=== PATIENT | male | born 1930 | race Caucasian/White ===

== ENCOUNTER 2017-02-17 11:43 | Observation (INO) | payer MEDICARE ==
[2017-02-17] VITALS (8 sets, daily range): BP systolic 129–183; BP diastolic 67–105; PULSE 67–72; RESP 16–19; TEMP 97.8–98.6; O2SAT 69–98
[~2017-02-17] VITALS: Ht 185.4 cm; Wt 127.2 kg
[~2017-02-17 11:43] MED LIST: BETH25TA3 PO; DOXE50CA3 PO; GABA300C3 PO; OCUVTAB PO; OMEG100010; PROBCAP4 PO; SYMB160A INH; TYLE500T PO; VENTAER INH; WARF-20 PO
[2017-02-17] MEDS ORDERED: [UNRECOGNIZED DRUG - REMARK] (12:06)
[2017-02-17] MEDS ORDERED: FISH500C (12:06)
[2017-02-17] MEDS ORDERED: WARF-20 PO (12:06)
[2017-02-17] MEDS ORDERED: MULT1TAB39 (12:06)
[2017-02-17] MEDS ORDERED: VENTAER INH (12:06)
[2017-02-17] MEDS ORDERED: DOXE50CA3 PO (12:06)
[2017-02-17] MEDS ORDERED: GABA300C5 PO (12:06)
[2017-02-17] MEDS ORDERED: SYMB160A INH (12:06)
[2017-02-17] MEDS ORDERED: OMEG100010 (12:06)
[2017-02-17] MEDS ORDERED: SODIUM CHLORIDE 0.9% FLUSH 10 ML FLUSH IVF PRN (12:30)
[2017-02-17 12:33] LABS: AUTOMATED NEUTROPHIL # 5.7 TH/MM3 (1.8-7.7); BASOPHIL % 0.6 % (0.0-2.0); EOSINOPHIL # 0.3 TH/MM3 (0-0.4); EOSINOPHIL % 3.3 % (0.0-4.0); HEMATOCRIT 36.2 % (39.0-51.0); HEMO FLAGS DIFF FINAL; LYMPH % 11.9 % (9.0-44.0); LYMPHOCYTE # 0.9 TH/MM3 (1.0-4.8); MEAN CELL VOLUME 88.3 FL (80.0-100.0); MEAN CORPUSCULAR HGB CONC 32.8 % (32.0-36.0); MONO % 11.6 % (0.0-8.0); NEUT % 72.6 % (16.0-70.0); PLATELET COUNT 176 TH/MM3 (150-450); RED CELL DISTRIBUTION WIDTH 13.9 % (11.6-17.2); WHITE BLOOD COUNT 7.8 TH/MM3 (4.0-11.0)
[2017-02-17 12:38] LABS: CHLORIDE 106 MEQ/L (98-107); POTASSIUM 4.8 MEQ/L (3.5-5.1); SODIUM (NA) 140 MEQ/L (136-145)
--- NOTE | 2017-02-17 12:40 | PD ---
HPI Chief Complaint: Cardiac Complaint Time Seen by Provider: 12:08 Travel History International Travel<30 days: No Contact w/Intl Traveler<30days: No Traveled to known affect area: No History of Present Illness HPI 86yo M with PMH of PE on coumadin, COPD was sent from [facility] for evaluation of chest pain and new onset afib. Pt was at the clinic for nebulizer treatment as he is waiting for his machine when he was asked if he had any chest pain and he stated that had chest pain this morning. Stated it was left sided, lasts 3-4 minutes and associated with sob. Pt then had EKG done and was found to be in afib which was new. Pt states he has been having intermittent chest pain but did not tell his PMD and has not had a chest pain work up in years. Pt does not have a mat repairer. States he currently has no chest pain or sob. Denies any fever, cough, n/v, abdominal pain, focal weakness or numbness. PFSH Past Medical History Anemia: Yes Arthritis: Yes Asthma: Yes Autoimmune Disease: Yes (RHEUMATOID ARTHRITIS) Blood Disorders: No Anxiety: No Depression: No Heart Rhythm Problems: No Cancer: Yes (PROSTATE) Cardiac Catheterization: No Cardiovascular Problems: Yes High Cholesterol: No Chemotherapy: No Chest Pain: No Congestive Heart Failure: No COPD: Yes Cerebrovascular Accident: No Coronary Artery Disease: Yes Diabetes: No Diminished Hearing: No Deep Vein Thrombosis: Yes (PULMONARY) Endocrine: No Gastrointestinal Disorders: Yes GERD: Yes Genitourinary: Yes (PROSTATE) Hepatitis: No Hiatal Hernia: Yes Herniated Disk: Yes Immune Disorder: No Implanted Vascular Access Dvce: Yes (PEYTON FILTER) Insomnia: Yes Kidney Stones: No Medical other: Yes (BLOOD CLOTS - PEYTON FILTER.) Musculoskeletal: Yes (CHRONIC BACK PAIN- LUMBAR STENOSIS- UNDER PAIN MANAGEMENT ) Neurologic: Yes (NEUROPATHY TO BILAT LOWER EXTREMITIES) Psychiatric: No Reproductive: No Respiratory: Yes Immunizations Current: Yes Migraines: No Radiation Therapy: Yes (WITH PROSTATE CANCER) Renal Failure: Yes (HX. OF) Seizures: No Sickle Cell Disease: No Sleep Apnea: Yes Thyroid Disease: No Ulcer: No Influenza Vaccination: Yes PNEUMOCCOCAL Vaccine (Year): 2010 ?: Not Past Surgical History Abdominal Surgery: Yes (TIFF) Body Medical Devices: PEYTON FILTER Cardiac Surgery: No Cholecystectomy: Yes Coronary Artery Bypass Graft: No Ear Surgery: No Endocrine Surgery: No Eye Surgery: Yes (CATARACTS REMOVED) Genitourinary Surgery: Yes (PROSTATECTOMY) Gynecologic Surgery: No Joint Replacement: Yes (RIGHT KNEE 2010) Neurologic Surgery: Yes (discectomy = 1987) Oral Surgery: No Pacemaker: No Prostatectomy: Yes (1997) Thoracic Surgery: No Tonsillectomy: Yes Other Surgery: Yes Social History Alcohol Use: No Tobacco Use: No Substance Use: No Allergies-Medications (Allergen,Severity, Reaction): Coded Allergies: Lipitor (Verified Allergy, Mild, MUSCLE ACHE, 02/17/17) Simvastatin (Unverified Allergy, Mild, MUSCLE ACHE, 02/17/17) Zetia (Unverified Allergy, Mild, MUSCLE ACHE, 02/17/17) Uncoded Allergies: VYTORIN (Allergy, Unknown, 01/05/14) Reported Meds & Prescriptions Reported Meds & Active Scripts Active Reported Fish Oil ([place]-3 Fatty Acids) 500 Mg Cap [OTC med for ey] Warfarin 4 Mg Tab 4 Mg PO DAILY [place] 3 1000 mg ([place]-3 Fatty Acids) 1 Cap Cap Multiple Vitamin/Minerals (Multiple Vitamins W/ Minerals) 1 Tab Tab Gabapentin 300 Mg Cap 300 Mg PO HS Doxepin (Doxepin HCl) 50 Mg Cap 50 Mg PO HS Symbicort Inh (Budesonide/Formoterol Fumarate) 160-4.5 Mcg/Act Aero 2 Puff INH Q12HR Ventolin Hfa 18 GM Inh (Albuterol Sulfate) 90 Mcg/Act Aer 1 Puff INH Q4H PRN Review of Systems Except as stated in HPI: all other systems reviewed are Neg Physical Exam Narrative GENERAL: 86yo M not in distress. SKIN: Focused skin assessment warm/dry. HEAD: Atraumatic. Normocephalic. EYES: Pupils equal and round. No scleral icterus. No injection or drainage. CARDIOVASCULAR: Regular rate and irregular rhythm. No murmur appreciated. RESPIRATORY: No accessory muscle use. End expiratory wheezing bilaterally. GASTROINTESTINAL: Abdomen soft, non-tender, nondistended. MUSCULOSKELETAL: No obvious deformities. No clubbing. No cyanosis. +Bilateral lower ext edema. NEUROLOGICAL: Awake and alert. No obvious cranial nerve deficits. Motor grossly within normal limits. Normal speech. PSYCHIATRIC: Appropriate mood and affect; insight and judgment normal. Data Data Last Documented VS Vital Signs Date Time Temp Pulse Resp B/P Pulse Ox O2 Delivery O2 Flow Rate FiO2 02/17/17 14:05 68 18 160/67 97 Room Air 02/17/17 11:54 98.6 Orders Electrocardiogram (02/17/17 ) Basic Metabolic Panel (Bmp) (02/17/17 12:21) Ckmb (Isoenzyme) Profile (02/17/17 12:21) Complete Blood Count With Diff (02/17/17 12:21) Magnesium (Mg) (02/17/17 12:21) Prothrombin Time / Inr (Pt) (02/17/17 12:21) Act Partial Throm Time (Ptt) (02/17/17 12:21) Troponin I (02/17/17 12:21) Chest, Single Ap (02/17/17 12:21) Ecg Monitoring (02/17/17 12:21) Bilateral Bp Monitoring (02/17/17 12:21) Iv Access Insert/Monitor (02/17/17 12:21) Oximetry (02/17/17 12:21) Oxygen Administration (02/17/17 12:21) Sodium Chloride 0.9% Flush (Ns Flush) (02/17/17 12:30) B-Type Natriuretic Peptide (02/17/17 12:24) Albuterol-Ipratropium Neb (Duoneb Neb) (02/17/17 14:15) Admit Order (Ed Use Only) (02/17/17 14:18) Labs Laboratory Tests Test 02/17/17 02/17/17 12:27 12:34 White Blood Count 7.8 TH/MM3 Red Blood Count 4.10 MIL/MM3 Hemoglobin 11.9 GM/DL Hematocrit 36.2 % Mean Corpuscular Volume 88.3 FL Mean Corpuscular Hemoglobin 29.0 PG Mean Corpuscular Hemoglobin 32.8 % Concent Red Cell Distribution Width 13.9 % Platelet Count 176 TH/MM3 Mean Platelet Volume 10.2 FL Neutrophils (%) (Auto) 72.6 % Lymphocytes (%) (Auto) 11.9 % Monocytes (%) (Auto) 11.6 % Eosinophils (%) (Auto) 3.3 % Basophils (%) (Auto) 0.6 % Neutrophils # (Auto) 5.7 TH/MM3 Lymphocytes # (Auto) 0.9 TH/MM3 Monocytes # (Auto) 0.9 TH/MM3 Eosinophils # (Auto) 0.3 TH/MM3 Basophils # (Auto) 0.0 TH/MM3 CBC Comment DIFF FINAL Differential Comment Prothrombin Time 29.6 SEC Prothromb Time International 2.6 RATIO Ratio Activated Partial 35.2 SEC Thromboplast Time Sodium Level 140 MEQ/L Potassium Level 4.8 MEQ/L Chloride Level 106 MEQ/L Carbon Dioxide Level 26.4 MEQ/L Anion Gap 8 MEQ/L Blood Urea Nitrogen 36 MG/DL Creatinine 2.00 MG/DL Estimat Glomerular Filtration 32 ML/MIN Rate Random Glucose 101 MG/DL Hemoglobin A1c 5.7 % Calcium Level 9.4 MG/DL Magnesium Level 2.2 MG/DL Total Creatine Kinase 76 U/L Troponin I LESS THAN 0.02 NG/ML Triglycerides Level 144 MG/DL Cholesterol Level 195 MG/DL LDL Cholesterol 115 MG/DL HDL Cholesterol 51.5 MG/DL Cholesterol/HDL Ratio 3.78 RATIO Thyroid Stimulating Hormone 0.923 uIU/ML 3rd Gen B-Type Natriuretic Peptide 267 PG/ML [facility] Medical Decision Making Medical Screen Exam Complete: Yes Emergency Medical Condition: Yes Interpretation(s) EKG: Afib at 71bpm. RBBB. LAD. Differential Diagnosis ACS vs. COPD exacerbation vs. CHF Narrative Course 86yo M with intermittent chest pain and new onset afib. Last episode of chest pain was this morning. Pt has not had cardiac work up in a long time. Has end expiratory wheezing but states he does not currently want any nebulizer treatments. Will take one at about 3pm. Labs reviewed, no leukocytosis. Troponin negative. BNP 267. BUN/creatinine 36/2.0 which is baseline for pt. CXR showed underinflated examination with atelectasis at lung bases. No cardiopulmonary abnormality is identified. Since pt has not had any cardiac work up in years, will admit to chest pain center for serial EKG and cardiac enzyme. Discussed with Dr. Stoddard and accepted to his service. Diagnosis Primary Impression: Chest pain Qualified Code: R07.9 - Chest pain, unspecified type Admitting Information Admitting Physician Requests: Kori Santos DO Feb 17, 2017 12:40
[2017-02-17 12:41] LABS: ANION GAP 8 MEQ/L (5-15); BICARBONATE 26.4 MEQ/L (21.0-32.0); MAGNESIUM 2.2 MG/DL (1.5-2.5)
[2017-02-17 12:42] LABS: BLOOD UREA NITROGEN 36 MG/DL (7-18)
[2017-02-17 12:45] LABS: GLOMERULAR FILTRATION RATE 32 ML/MIN (>89)
[2017-02-17 12:50] LABS: APTT (PATIENT) 35.2 SEC (24.3-30.1); INTERNATIONAL NORMALIZED RATIO 2.6 RATIO; PROTHROMBIN TIME - PATIENT 29.6 SEC (9.8-11.6)
[2017-02-17 12:51] LABS: CREATINE KINASE 76 U/L (39-308)
--- NOTE | 2017-02-17 13:15 | RADRPT ---
EXAM DATE/TIME: 02/17/2017 12:49 [place] COMPARISON: CHEST SINGLE AP, July 05, 2015, 19:24. INDICATIONS : Patient was at a facility earlier today in [facility] and was sent here because of A-fib. Patient als o complains of shortness of breath for three weeks. MEDICAL HISTORY : Chronic obstructive pulmonary disease. Renal failure. SURGICAL HISTORY : Right knee surgery. ENCOUNTER: Initial ACUITY: 3 weeks PAIN SCORE: 0/10 LOCATION: Bilateral chest FINDINGS: Portable AP view of the chest demonstrates a normal-sized cardiac silhouette. Lungs are underinflated with atelectasis at the bases. No pleural effusion, airspace consolidation, or pneumothorax is prese nt. Bones and soft tissues demonstrate no acute finding. CONCLUSION: Underinflated examination with atelectasis at the lung bases. No acute cardiopulmonary abnormality is identified. Todd Larkin MD on February 17, 2017 at 13:12 Board Certified Radiologist. This report was verified electronically.
[2017-02-17] MEDS ORDERED: RESP: ALBUTEROL 2.5 MG/IPRATROPIUM 0.5 MG NEB (SCH) NEB ONE (14:15)
[2017-02-17] MEDS ORDERED: NALOXONE HCL 0.4 MG/ML AMP IV PRN (14:30)
[2017-02-17] MEDS ORDERED: SODIUM CHLORIDE 0.9% FLUSH 10 ML FLUSH IV FLUSH PRN (14:30)
[2017-02-17] MEDS ORDERED: ACETAMINOPHEN 325 MG TAB PO PRN ×2 (14:30)
--- NOTE | 2017-02-17 14:51 | HHI.HP ---
[facility] Physician Ashlee Shanks MD Admission Diagnosis Chest pain Diagnoses: Chief Complaint: Chest pain, shortness of breath Travel History International Travel<30 Days: No Contact w/Intl Traveler <30 Da: No Traveled to Known Affected Are: No History of Present Illness The patient is an 86-year-old male with a past medical history of PE on Coumadin who is presenting to the hospital with chest pain. The patient says that over the past couple of weeks he has been feeling short of breath. He says he gets short of breath with ambulation. He has noticed some wheezing. He went to the clinic today to see if he can get nebulizers ordered. At the clinic he was asked if he had chest pain and he said that he does. He says he gets intermittent chest pain from time to time. He has had chest pain on and off over the past year or so. He says the pain is located in the center of his chest or a little bit to the left of his center. The chest pain lasts for a few minutes at a time. He has no radiation of the pain. He thought it might be indigestion. Sometimes the chest pain is accompanied by shortness of breath. He reports having a stress test along time ago which was normal. He denies any palpitations. He denies any history of atrial fibrillation. 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 Rhizotomy L4/5 discectomy/hemilaminectomy IVC filter Penile prosthesis Radical prostatectomy Bilat rotator cuff surgery Allergies: Coded Allergies: Lipitor (Verified Allergy, Mild, MUSCLE ACHE, 02/17/17) Simvastatin (Unverified Allergy, Mild, MUSCLE ACHE, 02/17/17) Zetia (Unverified Allergy, Mild, MUSCLE ACHE, 02/17/17) Uncoded Allergies: VYTORIN (Allergy, Unknown, 01/05/14) Active Ordered Medications Current Medications Medications (Trade) Dose Ordered Sig/José Route Start Time Stop Time Status Last Admin (Duoneb Neb) 1 ampule ONCE ONCE NEB 02/17/17 14:15 02/17/17 14:16 02/17/17 14:27 (Symbicort 160-4.5 Inh) 2 puff Q12HR INH 02/17/17 21:00 (SINEquan) 50 mg HS PO 02/17/17 21:00 (Neurontin) 300 mg HS PO 02/17/17 21:00 (Coumadin) 4 mg DAILY PO 02/18/17 09:00 UNV (NS Flush) 2 ml UNSCH PRN IV FLUSH 02/17/17 14:30 (NS Flush) 2 ml BID IV FLUSH 02/17/17 21:00 (Tylenol) 650 mg Q4H PRN PO 02/17/17 14:30 (Tylenol) 650 mg Q6H PRN PO 02/17/17 14:30 (Narcan Inj) 0.4 mg UNSCH PRN IV 02/17/17 14:30 (Pauline-Colace) 1 tab BID PO 02/17/17 21:00 Social History The patient does not smoke or drink. Physical Exam Vital Signs Vital Signs Date Time Temp Pulse Resp B/P Pulse Ox O2 Delivery O2 Flow Rate FiO2 02/17/17 14:05 68 18 160/67 97 Room Air 02/17/17 14:05 97 02/17/17 11:54 98.6 72 16 129/79 96 Physical Exam GENERAL: This is a well-nourished, well-developed patient, in no apparent distress. SKIN: Cool and dry. HEAD: Atraumatic. Normocephalic. No temporal or scalp tenderness. EYES: Pupils equal round and reactive. Extraocular motions intact. No scleral icterus. No injection or drainage. ENT: Nose without bleeding, purulent drainage or septal hematoma. Throat without erythema, tonsillar hypertrophy or exudate. Uvula midline. Airway patent. NECK: Trachea midline. No JVD or lymphadenopathy. Supple, nontender, no meningeal signs. CARDIOVASCULAR: Irregularly irregular. RESPIRATORY: Scattered rhonchi. GASTROINTESTINAL: Abdomen soft, non-tender, nondistended. No hepato-splenomegaly , or palpable masses. No guarding. MUSCULOSKELETAL: 1+ bilateral lower extremity edema. NEUROLOGICAL: Awake and alert. Cranial nerves II through XII intact. Motor and sensory grossly within normal limits. Five out of 5 muscle strength in all muscle groups. Normal speech. PSYCH: Mood and affect appropriate. Laboratory Laboratory Tests Test 02/17/17 02/17/17 12:27 12:34 White Blood Count 7.8 Red Blood Count 4.10 Hemoglobin 11.9 Hematocrit 36.2 Mean Corpuscular Volume 88.3 Mean Corpuscular Hemoglobin 29.0 Mean Corpuscular Hemoglobin 32.8 Concent Red Cell Distribution Width 13.9 Platelet Count 176 Mean Platelet Volume 10.2 Neutrophils (%) (Auto) 72.6 Lymphocytes (%) (Auto) 11.9 Monocytes (%) (Auto) 11.6 Eosinophils (%) (Auto) 3.3 Basophils (%) (Auto) 0.6 Neutrophils # (Auto) 5.7 Lymphocytes # (Auto) 0.9 Monocytes # (Auto) 0.9 Eosinophils # (Auto) 0.3 Basophils # (Auto) 0.0 CBC Comment DIFF FINAL Differential Comment Prothrombin Time 29.6 Prothromb Time International 2.6 Ratio Activated Partial 35.2 Thromboplast Time Sodium Level 140 Potassium Level 4.8 Chloride Level 106 Carbon Dioxide Level 26.4 Anion Gap 8 Blood Urea Nitrogen 36 Creatinine 2.00 Estimat Glomerular Filtration 32 Rate Random Glucose 101 Calcium Level 9.4 Magnesium Level 2.2 Total Creatine Kinase 76 Troponin I LESS THAN 0.02 B-Type Natriuretic Peptide 267 Result Diagram: 02/17/17 1227 02/17/17 1227 Imaging Last Impressions Chest X-Ray 02/17/17 1221 Signed Impressions: Service Date/Time: Friday, February 17, 2017 12:49 - CONCLUSION: Underinflated examination with atelectasis at the lung bases. No acute cardiopulmonary abnormality is identified. Todd Larkin MD Assessment and Plan Assessment and Plan Chest pain Chronic, over the past year. Currently not having chest pain. Initial troponin negative. CXR unremarkable. EKG with rate controlled A fib, RBBB. - trend trops and EKGs. - telemetry. - nuclear stress test in the AM. - check lipid profile and hemoglobin A1c. Atrial fibrillation New onset. Rate controlled. - check an echocardiogram and TSH. - he is already anticoagulated on Coumadin. Continue. - rate control as needed. Dyspnea The pt apparently has COPD though he does not believe he has been diagnosed with it. Also with an elevated BNP and lower extremity edema. CXR unremarkable. - oxygen and nebs as needed. - echo pending. - incentive spirometry. - continue Symbicort. Chronic kidney disease Creatinine appears to be at baseline. - avoid nephrotoxic agents. Recurrent PE On Coumadin. INR is therapeutic. - continue Coumadin. HTN The pt says his blood pressure is usually normal. - monitor. - Vasotec as needed. PPx: Coumadin Code Status Full Discussed Condition With Patient, Chris Sal DO Feb 17, 2017 14:51
[2017-02-17] MEDS ORDERED: ENALAPRILAT 1.25 MG/ML VIAL IV PUSH PRN (15:15)
[2017-02-17 18:13] LABS: HDL CHOLESTEROL 51.5 MG/DL (40.0-60.0); LDL CHOLESTEROL 115 MG/DL (0-99)
[2017-02-17] MEDS: SODIUM CHLORIDE 0.9% FLUSH 10 ML FLUSH IV FLUSH SCH (21:00)
[2017-02-17] MEDS ORDERED: DOXEPIN HCL 50 MG CAP PO SCH (21:00)
[2017-02-17] MEDS ORDERED: GABAPENTIN 300 MG CAP PO SCH (21:00)
[2017-02-17] MEDS: RESP: ALBUTEROL 2.5 MG/IPRATROPIUM 0.5 MG NEB (PRN) NEB (21:07)
[2017-02-17] MEDS: DOCUSATE SODIUM 50 MG/SENNA 8.6 MG TAB PO SCH (21:35)
[2017-02-17] MEDS: BUDESONIDE-FORMOTEROL 160/4.5 MCG INHALER INH SCH (21:35)
[2017-02-17 22:26] LABS: HEMOGLOBIN A1a 1.1 %; HEMOGLOBIN A1b 2.2 %; HEMOGLOBIN Ao 83.2 %; HEMOGLOBIN LA1C 2.4 %; HEMOGLOBIN P3 6.3 %
[2017-02-18] VITALS: BP 146/88; PULSE 70; RESP 23; TEMP 96.1; O2SAT 93
[2017-02-18 04:00] VITALS: BP 146/85; PULSE 67; RESP 18; TEMP 97.8; O2SAT 93
[2017-02-18 08:17] VITALS: O2SAT 94
[2017-02-18] MEDS: RESP: ALBUTEROL 2.5 MG/IPRATROPIUM 0.5 MG NEB (PRN) NEB ×2 (08:17→16:22)
[2017-02-18] MEDS: DOCUSATE SODIUM 50 MG/SENNA 8.6 MG TAB PO SCH (08:21)
[2017-02-18] MEDS: SODIUM CHLORIDE 0.9% FLUSH 10 ML FLUSH IV FLUSH SCH (08:21)
[2017-02-18] MEDS: BUDESONIDE-FORMOTEROL 160/4.5 MCG INHALER INH SCH (08:30)
[2017-02-18 08:38] LABS: AUTOMATED NEUTROPHIL # 4.4 TH/MM3 (1.8-7.7); BASOPHIL % 0.6 % (0.0-2.0); EOSINOPHIL # 0.3 TH/MM3 (0-0.4); EOSINOPHIL % 4.9 % (0.0-4.0); HEMO FLAGS DIFF FINAL; LYMPH % 17.7 % (9.0-44.0); LYMPHOCYTE # 1.2 TH/MM3 (1.0-4.8); MEAN CORPUSCULAR HEMOGLOBIN 29.4 PG (27.0-34.0); MEAN CORPUSCULAR HGB CONC 33.5 % (32.0-36.0); MONO % 12.5 % (0.0-8.0); NEUT % 64.3 % (16.0-70.0); PLATELET COUNT 181 TH/MM3 (150-450); RED BLOOD COUNT 3.87 MIL/MM3 (4.50-5.90); RED CELL DISTRIBUTION WIDTH 13.9 % (11.6-17.2); WHITE BLOOD COUNT 6.7 TH/MM3 (4.0-11.0)
[2017-02-18 08:45] LABS: POTASSIUM 4.6 MEQ/L (3.5-5.1)
[2017-02-18 08:46] LABS: INTERNATIONAL NORMALIZED RATIO 2.2 RATIO; PROTHROMBIN TIME - PATIENT 25.5 SEC (9.8-11.6)
[2017-02-18 08:49] LABS: BICARBONATE 25.3 MEQ/L (21.0-32.0)
[2017-02-18] MEDS ORDERED: WARFARIN SOD 4 MG TAB PO SCH (09:00)
--- NOTE | 2017-02-18 09:24 | EKG ---
Date Performed: 02/17/2017 Time Performed: 19:06:14 PTAGE: 86 years EKG: ATRIAL FIBRILLATION MARKED LEFT AXIS DEVIATION RIGHT BUNDLE BRANCH BLOCK ABNORMAL ECG PREVIOUS TRACING : 02/17/2017 16.10 DOCTOR: Jaime Mario Interpretating Date/Time 02/18/2017 09:23:39
[2017-02-18 09:25] VITALS: PULSE 72
[2017-02-18 10:13] VITALS: BP 131/92; PULSE 70; RESP 16; TEMP 97; O2SAT 92
--- NOTE | 2017-02-18 10:43 | EKG ---
Date Performed: 02/17/2017 Time Performed: 16:10:32 PTAGE: 86 years EKG: ATRIAL FIBRILLATION BORDERLINE LEFT AXIS DEVIATION RIGHT BUNDLE BRANCH BLOCK ABNORMAL ECG PREVIOUS TRACING : 02/17/2017 12.06 DOCTOR: Jaime Mario Interpretating Date/Time 02/18/2017 10:42:01
--- NOTE | 2017-02-18 11:40 | EKG ---
Date Performed: 02/17/2017 Time Performed: 12:06:00 PTAGE: 86 years EKG: ATRIAL FIBRILLATION BORDERLINE LEFT AXIS DEVIATION RIGHT BUNDLE BRANCH BLOCK ABNORMAL ECG NO PREVIOUS TRACING DOCTOR: Jaime Mario Interpretating Date/Time 02/18/2017 11:39:34
--- NOTE | 2017-02-18 12:36 | ECHRPT ---
Indication: Paroxysmal atrial fibrillation CONCLUSIONS Normal left ventricular size and wall thickness. The left ventricular systolic function is normal wi th an estimated ejection fraction in the range of 50-55%. Left ventricular diastolic function parameters a re normal. No definite regional wall motion abnormalities. Trace to mild mitral valve regurgitation. Moderate sclerosis of the noncoronary cusp of the aortic valve. There is mild to moderate tricuspid regurgitation. There is estimated moderate pulmonary hypertension present ( 55 mmHg). BP: / HR: Rhythm: Atrial fibrillation MEASUREMENTS (Male / Female) Normal Values Technical Quality:Fair 2D ECHO LV Diastolic Diameter PLAX 4.8 cm 4.2 - 5.9 / 3.9 - 5.3 cm LV Systolic Diameter PLAX 3.9 cm IVS Diastolic Thickness 1.3 cm 0.6 - 1.0 / 0.6 - 0.9 cm LVPW Diastolic Thickness 0.8 cm 0.6 - 1.0 / 0.6 - 0.9 cm LV Relative Wall Thickness 0.4 RV Internal Dim ED PLAX 2.4 cm LA Systolic Diameter LX 3.8 cm 3.0 - 4.0 / 2.7 - 3.8 cm M-MODE Aortic Root Diameter MM 3.4 cm AV Cusp Separation MM 1.9 cm DOPPLER AV Peak Velocity 162.0 cm/s AV Peak Gradient 10.5 mmHg LVOT Peak Velocity 73.5 cm/s LVOT Peak Gradient 2.2 mmHg Mitral E Point Velocity 89.8 cm/s Mitral A Point Velocity 28.1 cm/s Mitral E to A Ratio 3.2 TR Peak Velocity 335.0 cm/s TR Peak Gradient 44.9 mmHg FINDINGS LEFT VENTRICLE Normal left ventricular size and wall thickness. The left ventricular systolic function is normal wi th an estimated ejection fraction in the range of 50-55%. Left ventricular diastolic function parameters a re normal. No definite regional wall motion abnormalities. RIGHT VENTRICLE The right ventriclar size is upper limits of normal. LEFT ATRIUM The left atrial size is normal. RIGHT ATRIUM The right atrial size is normal. ATRIAL SEPTUM Normal atrial septal thickness without atrial level shunting by limited color doppler interrogation. AORTA The aortic root and proximal ascending aorta are normal in size on limited imaging. MITRAL VALVE Trace to mild mitral valve regurgitation. AORTIC VALVE Moderate sclerosis of the noncoronary cusp. TRICUSPID VALVE There is mild to moderate tricuspid regurgitation. There is estimated moderate pulmonary hypertension present ( 55 mmHg). PULMONARY VALVE The pulmonary valve is not well visualized. VESSELS The inferior vena cava is normal in size. PERICARDIUM No pericardial effusion. Richard Carbajal MD (Electronically Signed) Final Date:18 February 2017 12:36
--- NOTE | 2017-02-18 12:38 | HHI.PR ---
Subjective Remarks Patient seen and examined today for follow-up on chest pain, new onset atrial fibrillation. Patient denies any recurrent chest pain. Denies any palpitations , arrhythmia, shortness of breath, dyspnea. Patient's at bedside, discussed with patient and concerning atrial fibrillation, chest discomfort. Answered all of their questions. Objective Vitals Vital Signs Date Time Temp Pulse Resp B/P Pulse Ox O2 Delivery O2 Flow Rate FiO2 02/18/17 10:13 97.0 70 16 131/92 92 02/18/17 09:25 72 02/18/17 08:17 94 21 02/18/17 04:00 97.8 67 18 146/85 93 02/18/17 00:00 96.1 70 23 146/88 93 02/17/17 20:55 97 21 02/17/17 20:00 97.8 69 18 145/82 69 02/17/17 16:07 160/89 02/17/17 15:30 97.9 67 19 183/105 96 02/17/17 15:05 70 16 146/78 98 02/17/17 14:49 98 21 02/17/17 14:05 68 18 160/67 97 Room Air 02/17/17 14:05 97 I/O 02/17/17 02/17/17 02/17/17 02/18/17 02/18/17 02/18/17 07:00 15:00 23:00 07:00 15:00 23:00 Intake Total 0 ml 0 ml 100 ml Output Total 550 ml Balance -550 ml 0 ml 100 ml Intake Oral 0 ml 0 ml 100 ml Output Urine Total 550 ml # Voids 3 # Bowel Movements 0 0 Result Diagram: 02/18/17 0738 02/18/17 0738 Objective Remarks GENERAL: Well-developed, well-nourished, in no acute distress. alert and orientated HEENT: Head is normocephalic without any lesions or masses noted. Facial features are symmetric. Eyes: Extraocular muscles are intact. Conjunctivae were clear. NECK: Supple without any masses. Trachea midline no deviation. No JVD, no bruits are appreciated CARDIAC: Regular rhythm, regular rate. S1/S2 are heard. No murmurs gallops or rubs. LUNGS: Clear to auscultation bilaterally. No wheeze, rhonchi or rales. No use of accessory muscles on inspiration or expiration. ABDOMEN: Soft, nontender. Nondistended. Bowel sounds heard in all 4 quadrants. No organomegaly or masses. Negative rebound, negative guarding EXTREMITIES: 1+ pitting edema noted bilaterally., pulses are equal bilaterally. No cyanosis or clubbing NEUROLOGY: Mood and affect appear appropriate. Cranial nerves II through XII grossly intact. Moving all extremities, speech is clear Urinary Catheter: No Vascular Central Line Catheter: No A/P Assessment and Plan Chest pain, atypical, appears to be chronic over the last year Patient has been ruled out for acute coronary event with serial cardiac enzymes which are negative, serial EKGs that showed atrial fibrillation without any changes Chest x-ray unremarkable for any abnormality We'll pursue nuclear stress test rule out any underlying ischemia New onset atrial fibrillation, possible paroxysmal Rate controlled TSH 0.923 Patient anticoagulated on Coumadin, INR 2.2 Echocardiogram with ejection fraction 5055 percent, trace to mild mitral valve regurgitation. Moderate sclerosis of the noncoronary cusp of the aortic valve. Ventricular function is normal, moderate pulmonary hypertension Outpatient follow-up will be recommended Hyperlipidemia LDL 118 Patient has adverse reactions to statins with muscle aches Discuss with patient's primary medical doctor who recommended outpatient follow -up for further management Dyspnea with underlying chronic obstructive pulmonary disease, improved with duo nebs Mild lower extremity edema and Mildly elevated BNP which could be secondary to atrial fibrillation, chest x-ray did not indicate any pulmonary edema O2 supplementation maintain O2 sats greater 92% Continue Symbicort Duo nebs as needed Chronic kidney disease stage III Creatinine appears to be at baseline. avoid nephrotoxic agents. Pulmonary emboli, recurrent Continue Coumadin, INR is therapeutic Hypertension, blood pressure mildly elevated Patient's primary medical doctor reviewed office records and indicate patient has no previous history of high blood pressure. Would hold off at this time of starting any blood pressure medication. Indicated patient to follow-up in her office in 1-2 days for further blood pressure evaluation DVT prevention Coumadin Discharge Planning Discharge home in stable condition if stress test is negative Diet: Healthy heart diet Activity: Ad rancho. Medications per medication reconciliation Follow-up with primary medical doctor in one week. Owen Robbins Feb 18, 2017 12:38
[2017-02-18 12:42] VITALS: BP 151/76; PULSE 66; RESP 15; TEMP 97.3; O2SAT 97
[2017-02-18] MEDS ORDERED: REGADENOSON INJ 0.4 MG/5 ML SYR IV ONE (13:41)
--- NOTE | 2017-02-18 16:13 | RADRPT ---
EXAM DATE/TIME: 02/18/2017 13:40 [place] COMPARISON: No previous studies available for comparison. INDICATIONS : Mid chest pain for two weeks with shortness of breath. Atrial fibrillation. DOSE: 35.0 mCi Tc99m Myoview at stress. 11.0 mCi Tc99m Myoview at rest. 0.4 mg Lexiscan STRESS SYMPTOMS: Warm feeling. EJECTION FRACTION: 52% MEDICAL HISTORY : Carcinoma, prostate. Chronic obstructive pulmonary disease. Gastroesophageal reflux disease. SURGICAL HISTORY : Total knee replacement, right. Prostatectomy. Rotator cuff, left. ENCOUNTER: Initial ACUITY: 2 weeks PAIN SCALE: 4/10 LOCATION: Midsternal chest TECHNIQUE: The patient underwent pharmacologic stress with infusion of prescribed dose. Continuous ECG tracing was monitored during stress. Gated SPECT imaging was performed after stress and conventional SPECT i maging was performed at rest. The examination was performed on a SPECT/CT scanner, both attenuation and non-corrected datasets were reviewed. FINDINGS: DISTRIBUTION: The maximum perfused segment at stress is in the anterolateral wall. PERFUSION STUDY: The pattern of perfusion at stress is within normal limits. No fixed or reversible perfusion defect i s identified. GATED STUDY: There is intact wall motion and thickening without hypokinetic or dyskinetic segments. CONCLUSION: 1. Left ventricle perfusion is within normal limits. No fixed or reversible perfusion defect is ident ified. 2. No wall motion abnormality is identified. Left ventricle ejection fraction is calculated at 52%. RISK CATEGORY: Low (<1% Annual Mortality Rate) Todd Larkin MD on February 18, 2017 at 16:08 Board Certified Radiologist. This report was verified electronically.
--- NOTE | 2017-02-18 16:18 | HHI.DCPOC ---
Discharge Care Plan Diagnosis: (1) Chest pain Goals to Promote Your Health * To prevent worsening of your condition and complications * To maintain your health at the optimal level Directions to Meet Your Goals Take your medications as prescribed Follow your dietary instruction Follow activity as directed Keep your appointments as scheduled Take your immunizations and boosters as scheduled If your symptoms worsen call your PCP, if no PCP go to Urgent Care Center or Emergency Room Smoking is Dangerous to Your Health. Avoid second hand smoke Call the 24-hour hour crisis hotline for domestic abuse at [facility] Feb 18, 2017 16:18
[2017-02-19] MEDS ORDERED: WARFARIN SOD 4 MG TAB PO SCH (16:00)
--- NOTE | 2017-02-19 17:32 | TR ---
Date Performed: 02/18/2017 Time Performed: 14:02:29 DOCTOR: Aislinn Julio DRUG LIST: CLINICAL HISTORY: A FIB REASON FOR TEST: A FIB REASON FOR ENDING: OBSERVATION: CONCLUSION: Lexiscan stress test was performed under standard four minute protocol. Radionuclid e was injected one minute prior to ending the test. No electrocardiographic abormalities were present to suggest ischemia. Nuclear imaging and interpretation are pending. COMMENTS:
== END 2017-02-18 17:04 | disposition home or self-care (01) ==
LOC: PHED 11:43 → PHEDA 14:19 → PH5A 14:59
PROVIDERS: ADMIT Hospitalist; ATTEND Hospitalist
DX: R07.9 Chest pain, unspecified (principal); I48.91 Unspecified atrial fibrillation; I45.10 Unspecified right bundle-branch block; R06.00 Dyspnea, unspecified; R60.0 Localized edema; R06.02 Shortness of breath; R94.31 Abnormal electrocardiogram [ECG] [EKG]; I25.10 Atherosclerotic heart disease of native coronary artery without angina pectoris; I12.9 Hypertensive chronic kidney disease with stage 1 through stage 4 chronic kidney disease, or unspecified chronic kidney disease; N18.3 Chronic kidney disease, stage 3 (moderate); E78.5 Hyperlipidemia, unspecified; G47.30 Sleep apnea, unspecified; J44.9 Chronic obstructive pulmonary disease, unspecified; K21.9 Gastro-esophageal reflux disease without esophagitis; G62.9 Polyneuropathy, unspecified; M06.9 Rheumatoid arthritis, unspecified; M51.36 Other intervertebral disc degeneration, lumbar region; M96.1 Postlaminectomy syndrome, not elsewhere classified; J98.11 Atelectasis; M19.90 Unspecified osteoarthritis, unspecified site; Z85.46 Personal history of malignant neoplasm of prostate; Z79.01 Long term (current) use of anticoagulants; Z86.711 Personal history of pulmonary embolism; Z96.651 Presence of right artificial knee joint
CPT/HCPCS: 71010; 78452; 80048; 80061; 82550; 83036; 83735; 83880; 84443; 84484; 85025; 85610; 85730; 93005; 93017; 93306; 94150; 94640; 94664; 99285; A9502; G0378; J2785